=== PATIENT | male | born 2000 | race Caucasian/White ===

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

== ENCOUNTER 2025-01-19 22:55 | Emergency (ER) | payer BC ==
[2025-01-19] MEDS: Sodium Chloride 0.9% 1,000 ML IV SCH (22:59)
[2025-01-19] MEDS: LORazepam 2 MG/ML SDV IVPUSH ONE ×2 (23:14→23:48)
[2025-01-19 23:17] LABS: BASOPHILS ABSOLUTE AUTO 0.04 10^3/uL (0.00-0.50); BASOPHILS PERCENT AUTO 0.9 % (0-1); EOSINOPHILS ABSOLUTE AUTO 0.39 10^3/uL (0.00-1.50); EOSINOPHILS PERCENT AUTO 8.5 % (0-6); HEMATOCRIT 44.4 % (42.0-52.0); HEMOGLOBIN 15.4 g/dL (14.0-18.0); IMMATURE GRAN ABSOLUTE AUTO 0.01 10^3/uL (0.00-0.49); IMMATURE GRAN PERCENT AUTO 0.2 % (0.0-4.9); LYMPHOCYTES ABSOLUTE AUTO 1.64 10^3/uL (0.60-5.00); LYMPHOCYTES PERCENT AUTO 35.6 % (24-44); MEAN CORPUSCULAR HEMOGLOBIN 31.2 pg (27.0-32.0); MEAN CORPUSCULAR HGB CONC 34.7 g/dL (32.0-36.0); MEAN CORPUSCULAR VOLUME 90.1 fL (83.0-97.0); MONOCYTES ABSOLUTE AUTO 0.43 10^3/uL (0.00-1.50); MONOCYTES PERCENT AUTO 9.3 % (0-10); NEUTROPHILS PERCENT AUTO 45.5 % (41-71); PLATELET COUNT,PLT 193 10^3/uL (150-400); RED BLOOD CELL COUNT 4.93 x10^6/uL (4.50-6.00); WHITE BLOOD CELL COUNT,WBC 4.6 10^3/uL (4.0-11.0)
[2025-01-19 23:18] VITALS: BP 120/82; PULSE 101
[2025-01-19 23:18] LABS: APPEARANCE,URINE CLEAR (CLEAR); BILIRUBIN,URINE NEGATIVE (NEGATIVE); COLOR,URINE LIGHT YELLOW (YELLOW); GLUCOSE,URINE NEGATIVE (NEGATIVE); KETONES,URINE NEGATIVE (NEGATIVE); LEUKOCYTE ESTERASE,URINE NEGATIVE (NEGATIVE); NITRITE,URINE NEGATIVE (NEGATIVE); OCCULT BLOOD,URINE NEGATIVE (NEGATIVE); PROTEIN,URINE NEGATIVE (NEGATIVE); UROBILINOGEN,URINE 0.2 EU/dL (0.2-1.0)
[2025-01-19 23:20] LABS: AMPHETAMINES,URINE NEGATIVE (NEGATIVE); BARBITURATES,URINE NEGATIVE (NEGATIVE); BENZODIAZEPINE,URINE NEGATIVE (NEGATIVE); MDMA (ECSTASY), URINE NEGATIVE (NEGATIVE); METHADONE,URINE NEGATIVE (NEGATIVE); METHAMPHETAMINES,URINE NEGATIVE (NEGATIVE); OPIATES,URINE NEGATIVE (NEGATIVE); OXYCODONE,URINE NEGATIVE (NEGATIVE); PHENCYCLIDINE,URINE NEGATIVE (NEGATIVE); TCA,URINE NEGATIVE (NEGATIVE)
[2025-01-19 23:31] LABS: ALANINE AMINOTRANSFERASE,ALT 46 U/L (12-78); ALBUMIN 4.2 g/dL (3.4-5.0); ALKALINE PHOSPHATASE 81 U/L (46-116); ASPARTATE AMNIOTRANSFERASE,AST 43 U/L (15-37); BILIRUBIN TOTAL 0.8 mg/dL (0.0-1.0); BLOOD UREA NITROGEN,BUN 5 mg/dL (7-18); C-REACTIVE PROTEIN < 0.50 mg/dL (<=0.50); CALCIUM 8.9 mg/dL (8.4-10.1); CARBON DIOXIDE,CO2 24 mmol/L (21-32); CHLORIDE,CL 107 mEq/L (98-106); CREATINE KINASE,CK 201 U/L (35-232); CREATININE 1.1 mg/dL (0.7-1.3); EST CRCL DRUG DOSING (CG) 85.15 mL/min; ESTIMATED GFR 97 mL/min (>=60); ETHANOL BLOOD MEDICAL 171 mg/dL (0-3); GLUCOSE RANDOM 80 mg/dL (75-99); POTASSIUM,K 3.5 mEq/L (3.5-5.0); PROTEIN TOTAL,TP 7.2 g/dL (6.4-8.2); SODIUM,NA 147 mEq/L (136-145)
[2025-01-20] MEDS: Take Home: LORazepam 0.5 MG Tab, 2 Tab Pack PO ONE (00:25)
== END 2025-01-20 00:42 | disposition home or self-care (01) ==
LOC: CC.ED 22:55
DX: F10.920 Alcohol use, unspecified with intoxication, uncomplicated (principal)
CPT/HCPCS: 36415; 80053; 80305-QW; 80307; 81003; 82550; 85025; 86140; 96374; 96376; 99283; 99284-25; A9270-GY; J2060; J7030